=== PATIENT | male | born 1965 | race Caucasian/White ===

== ENCOUNTER 2017-02-23 04:35 | Emergency (ER) | payer BC ==
[2017-02-23] MEDS ORDERED: Ondansetron 4 MG/2 ML SDV IV ONE (04:52)
[2017-02-23] MEDS ORDERED: HYDROmorphone 1 MG/ML Syringe IVPUSH ONE (04:53)
--- NOTE | 2017-02-23 05:19 | EDM.PDOC ---
ED HPI GI/ABDOMINAL - General Chief Complaint: Abdominal Pain Stated Complaint: GALLBLADDER [phone] Time Seen by Provider: 02/23/17 05:16 Source of Information: Reports: Patient History Limitations: Reports: No limitations - History of Present Illness INITIAL COMMENTS - FREE TEXT/NARRATIVE: states has GB surgery Saturday. tonight ate pizza and pain started. - Related Data Allergies/ADRs: Allergies Allergy/AdvReac Type Severity Reaction Status Date / Time No Known Allergies Allergy Verified 02/23/17 04:52 Home Meds: Home Meds Pantoprazole [ProTONIX] 02/23/17 [History] Sertraline HCl 02/23/17 [History] Venlafaxine HCl [Venlafaxine HCl ER] 02/23/17 [History] Past Medical History Psychiatric History: Reports: Anxiety, Depression - Infectious Disease History Infectious Disease History: Reports: Chicken pox Social & Family History - Family History Family Medical History: Noncontributory - Tobacco Use Smoking Status *Q: Never Smoker - Caffeine Use Caffeine Use: Reports: Coffee - Recreational Drug Use Recreational Drug Use: No ED ROS GENERAL - Review of Systems Review Of Systems: ROS reveals no pertinent complaints other than HPI. ED EXAM, GI/ABD - Physical Exam Exam: See Below Exam Limited By: No limitations General Appearance: alert, WD/WN, mild distress, other (rolling on floor) Ears: hearing grossly normal Throat/Mouth: Normal voice, No airway compromise Head: atraumatic Neck: non-tender, full range of motion Respiratory/Chest: no respiratory distress Cardiovascular: regular rate, rhythm GI/Abdominal: tenderness, guarding, other (RUQ-epiG). No: rebound, rigidity Neurological: alert, oriented, normal cognition, normal gait, no motor/sensory deficits Psychiatric: tearful Skin Exam: Warm, Dry Lymphatic: no adenopathy Course - Vital Signs Last Recorded V/S: Last Vital Signs Temp 35.7 C 02/23/17 05:00 Pulse 90 02/23/17 06:01 Resp 16 02/23/17 06:01 BP 127/74 02/23/17 06:01 Pulse Ox 95 02/23/17 06:01 - Orders/Labs/Meds Labs: Laboratory Tests 02/23/17 02/23/17 Range/Units 05:22 05:22 WBC 8.1 (5.0-10.0) 10^3/uL RBC 4.42 L (4.6-6.2) 10^6/uL Hgb 13.0 L (14.0-18.0) g/dL Hct 37.9 L (40.0-54.0) % MCV 85.7 (80-100) fL MCH 29.4 (27.0-34.0) pg MCHC 34.3 (33.0-35.0) g/dL Plt Count 180 (150-450) 10^3/uL Neut % (Auto) 81.5 H (42.2-75.2) % Lymph % (Auto) 12.5 L (20.5-50.1) % [place] % (Auto) 4.7 (2-8) % Eos % (Auto) 1.1 (1.0-3.0) % Baso % (Auto) 0.2 (0.0-1.0) % Sodium 140 (135-145) mmol/L Potassium 3.9 (3.6-5.0) mmol/L Chloride 105 (101-111) mmol/L Carbon Dioxide 28.0 (21.0-31.0) mmol/L Anion Gap 10.9 BUN 15 (7-18) mg/dL Creatinine 1.2 (0.6-1.3) mg/dL Est Cr Clr Drug Dosing 75.20 mL/min Estimated GFR (MDRD) > 60 BUN/Creatinine Ratio 12.50 Glucose 106 H (74-105) mg/dL Calcium 8.5 (8.4-10.2) mg/dl Total Bilirubin 0.3 (0.2-1.0) mg/dL AST 20 (10-42) IU/L ALT 28 (10-60) IU/L Alkaline Phosphatase 71 (42-121) IU/L Total Protein 6.9 (6.7-8.2) g/dl Albumin 3.9 (3.2-5.5) g/dl Globulin 3.0 Albumin/Globulin Ratio 1.30 Amylase 40 (28-100) U/L Lipase 28 (22-51) U/L Meds: Medications Discontinued Medications Generic Name Dose Route Start Last Admin Trade Name Freq PRN Reason Stop Dose Admin Hydromorphone HCl 2 mg 02/23/17 04:53 02/23/17 05:00 Dilaudid IVPUSH 02/23/17 04:54 2 mg ONETIME ONE Administration Ondansetron HCl 4 mg 02/23/17 04:52 02/23/17 04:57 Zofran IV 02/23/17 04:53 4 mg ONETIME ONE Administration - Re-Assessments/Exams Free Text/Narrative Re-Assessment/Exam: 02/23/17 05:19 s/p IV Rx= much better no more rolling about. 02/23/17 06:13 results discussed with Pt & spouse. Pt has no c/o Departure - Departure Time of Disposition: 06:14 Disposition: Home, Self-Care 01 Condition: good Clinical Impression: Cholecystitis Instructions: Abdominal Pain, Adult, [id number] Forms: ED Department Discharge Additional Instructions: 1) avoid solid foods next 3 to 4 days 2) have popsicle, jello, baby foods 3) follow up with family doctor or recheck as needed
[2017-02-23 05:50] LABS: CHLORIDE,CL 105 mmol/L (101-111); SODIUM,NA 140 mmol/L (135-145)
[2017-02-23 06:01] VITALS: BP 127/74
== END 2017-02-23 06:19 | disposition home or self-care (01) ==
LOC: DL.ED 04:35
DX: K81.9 Cholecystitis, unspecified (principal); F41.9 Anxiety disorder, unspecified; F32.9 Major depressive disorder, single episode, unspecified; Z79.899 Other long term (current) drug therapy
CPT/HCPCS: 36415; 80053; 82150; 83690; 85025; 96374; 96375; 99284; J1170; J2405

== ENCOUNTER 2020-07-05 10:42 | Day surgery (SDC) | payer OTHER, BC ==
[2020-07-05] MEDS ORDERED: Lidocaine 1% with EPINEPHrine 1:100,000 20 ML MDV INJECT ONE (10:43)
[2020-07-05 10:51] VITALS: BP 153/91; PULSE 77
[2020-07-05] MEDS ORDERED: Lidocaine 1% with EPINEPHrine 1:100,000 20 ML MDV ONE (11:00)
[2020-07-05] MEDS ORDERED: Lidocaine 1% with EPINEPHrine 1:100,000 30 ML MDV INJECT ONE ×2 (11:05→11:17)
--- NOTE | 2020-07-05 15:26 | OR ---
DATE: 07/05/2020 INTRODUCTION: This is a 54-year-old male who presents to the Surgery Clinic with 2 lesions, one is a chronic lesion in the mid back that is compatible with previously infected sebaceous cyst and he has a skin tag mole on the anterior body wall. On the back, this measures about 0.5 cm in diameter as well as the one on the anterior body wall is also 0.5 cm in diameter. The one on the back has been infected several different times and drains. It only moderately bothers him. DESCRIPTION OF PROCEDURE: In the General Surgery Clinic, 1% Xylocaine was used to infiltrate an area around this 5 mm lesion on the back. An elliptical incision was made 1 cm long and 7 mm wide. This elliptical incision was carried full-thickness down through the skin of the back to the subcutaneous tissue. Therefore, the margin around the cyst lesion was 2 mm. The dermal layer was closed with 2-0 Vicryl and skin was closed with 4-0 Monocryl. The patient was then placed on his back, and a punch biopsy was used to punch through this 5 mm in diameter skin lesion. This did not have any margins as it is benign and was simply excised at the margin of the mole. The skin was closed with an interrupted Monocryl suture and Steri-Strips. [facility] /[id number]
== END 2020-07-05 11:30 | disposition home or self-care (01) ==
LOC: DL.SDS 10:42 → DL.GSCL 10:42 → EDSTATUS 11:00 → DL.GSCL 11:30
PROVIDERS: ATTEND Surgery
DX: D23.5 Other benign neoplasm of skin of trunk (principal); D36.15 Benign neoplasm of peripheral nerves and autonomic nervous system of abdomen; E78.5 Hyperlipidemia, unspecified; Z79.899 Other long term (current) drug therapy; Z88.5 Allergy status to narcotic agent; Z88.8 Allergy status to other drugs, medicaments and biological substances
CPT/HCPCS: 11104; 11401; 12031; 88305

== ENCOUNTER 2021-06-10 01:24 | Emergency (ER) | payer OTHER, BC ==
--- NOTE | 2021-06-10 01:50 | EDM.PDOC ---
ED HPI GENERAL MEDICAL PROBLEM - General Chief Complaint: ENT Problem Stated Complaint: TOOTHPAIN ON RIGHTSIDE LOWER Time Seen by Provider: 06/10/21 01:50 Source of Information: Reports: Patient, RN, RN Notes Reviewed History Limitations: Reports: No Limitations - History of Present Illness INITIAL COMMENTS - FREE TEXT/NARRATIVE: Franklin is a 55 y/o male who presents to the ED via personal vehicle with complaints of right lower toothache. The patient reports his symptoms began earlier this evening and have progressively worsened over that time. The patient reports he has undergone significant dental work in the past three weeks, including root canal and dental infection due to lost fillings. He has taken doses of ibuprofen and acetaminophen, per his dentist's advice, which he feels has not provided alleviation of his pain. Right Lower Tooth/Teeth Pain Score (Numeric/FACES): 7 - Related Data Allergies Allergy/AdvReac Type Severity Reaction Status Date / Time No Known Allergies Allergy Verified 06/10/21 01:44 Home Meds: Home Meds Pantoprazole [ProTONIX] 40 mg PO DAILY 02/23/17 [History] Sertraline HCl 100 mg PO DAILY 02/23/17 [History] Venlafaxine HCl [Venlafaxine HCl ER] 150 mg PO DAILY 02/23/17 [History] Losartan Potassium [Cozaar] 50 mg PO DAILY 06/10/21 [History] Past Medical History Gastrointestinal History: Reports: Cholelithiasis Psychiatric History: Reports: Anxiety, Depression - Infectious Disease History Infectious Disease History: Reports: Chicken Pox - Past Surgical History GI Surgical History: Reports: Cholecystectomy Social & Family History - Family History Family Medical History: No Pertinent Family History - Tobacco Use Tobacco Use Status *Q: Current Every Day Tobacco User Years of Tobacco use: 30 Packs/Tins Daily: 0.5 - Caffeine Use Caffeine Use: Reports: Coffee, Soda - Recreational Drug Use Recreational Drug Use: No ED ROS ENT - Review of Systems Review Of Systems: Comprehensive ROS is negative, except as noted in HPI. ED EXAM, ENT - Physical Exam Exam: See Below Exam Limited By: No Limitations General Appearance: Alert, Mild Distress (Dental pain) Eye Exam: Bilateral Eye: EOMI, Normal Inspection, PERRL (3mm) Ears: Normal External Exam, Normal Canal, Hearing Grossly Normal, Normal TMs Nose: Normal Inspection, Normal Mucousa, No Blood Mouth/Throat: Normal Gums, Normal Lips, Normal Oropharynx, Dental Pain, Dental Tenderness (To right lower, tooth 28), Other (Poor dentition). No: Bleeding, Pharyngeal Erythema, Tonsillar Erythema, Tonsillar Exudates, Tonsillar Swelling Head: Atraumatic, Normocephalic Neck: Normal Inspection, Supple, Non-Tender, Full Range of Motion. No: Lymphadenopathy (L), Lymphadenopathy (R) Respiratory/Chest: No Respiratory Distress, Lungs Clear, Normal Breath Sounds, No Accessory Muscle Use, Chest Non-Tender Cardiovascular: Normal Peripheral Pulses, Regular Rate, Rhythm, No Edema, No Gallop, No JVD, No Murmur, No Rub GI/Abdominal: Normal Bowel Sounds, Soft, Non-Tender, No Distention, No Abnormal Bruit, No Mass, Pelvis Stable (Male) Exam: Deferred Rectal (Males) Exam: Deferred Back: Normal Inspection, Full Range of Motion Extremities: Normal Inspection, Normal Range of Motion, Non-Tender, No Pedal Edema, Normal Capillary Refill Neurological: Alert, Oriented, CN II-XII Intact, Normal Cognition, Normal Gait, No Motor/Sensory Deficits Psychiatric: Normal Affect, Anxious Skin: Warm, Dry, Intact, Normal Color, No Rash. No: Cyanosis, Ecchymosis, Erythema, Jaundice, Mottled, Pallor, Petechiae Course - Vital Signs Last Recorded V/S: Last Vital Signs Temp 96.9 F 06/10/21 01:51 Pulse 82 06/10/21 01:51 Resp 18 06/10/21 01:51 BP 123/86 06/10/21 01:51 Pulse Ox 96 06/10/21 01:51 - Orders/Labs/Meds Meds: Medications Discontinued Medications Generic Name Dose Route Start Last Admin Trade Name Miguelq PRN Reason Stop Dose Admin Acetaminophen 1,000 mg 06/10/21 02:05 06/10/21 02:18 Acetaminophen 500 Mg Tab PO 06/10/21 02:06 1,000 mg ONETIME ONE Administration Amoxicillin 1,000 mg 06/10/21 02:04 06/10/21 02:18 Amoxicillin 500 Mg Cap PO 06/10/21 02:05 1,000 mg ONETIME ONE Administration Ketorolac Tromethamine 60 mg 06/10/21 02:05 06/10/21 02:17 Ketorolac 30 Mg/Ml Sdv IM 06/10/21 02:06 60 mg ONETIME ONE Administration - Re-Assessments/Exams Free Text/Narrative Re-Assessment/Exam: 06/10/21 Ketorolac 60mg IM administered for tooth pain. Findings of examination reviewed with patient. Will treat dental infection with amoxicillin. Discussed supportive cares for dental pain. Patient instructed to follow up with primary dental home. Red flag signs and symptoms which would warrant reevaluation reviewed. Patient verbalized understanding and agreement with the plan of care. Departure - Departure Time of Disposition: 02:10 Disposition: Home, Self-Care 01 Condition: Good Clinical Impression: Tooth infection, Dental caries, Pain, dental - Discharge Information *PRESCRIPTION DRUG MONITORING PROGRAM REVIEWED*: Not Applicable *COPY OF PRESCRIPTION DRUG MONITORING REPORT IN PATIENT AMITA: Not Applicable Instructions: Acute Pain, Adult Referrals: PCP,None [Primary Care Provider] - Forms: ED Department Discharge Additional Instructions: Rx: amoxicillin 1.) Follow up with your primary care dentist on Saturday morning. 2.) Take all of your antibiotic until gone, even as symptoms improve. 3.) Do not take ibuprofen or other NSAIDs for at least 12 hours after receiving Toradol injection. 4.) You may take acetaminophen (Tylenol) 1000 mg every six hours, as pain persists. You may also take ibuprofen (Motrin) 400-600mg every six hours, as pain persists. You may stagger these medications so you are receiving a dose every three hours.
[2021-06-10 01:52] VITALS: BP 123/86; PULSE 82
[2021-06-10] MEDS ORDERED: Amoxicillin 500 MG Cap PO ONE (02:04)
[2021-06-10] MEDS ORDERED: Acetaminophen 500 MG Tab PO ONE (02:05)
[2021-06-10] MEDS ORDERED: Ketorolac 30 MG/ML SDV IM ONE (02:05)
== END 2021-06-10 02:23 | disposition home or self-care (01) ==
LOC: DL.ED 01:24
DX: K04.7 Periapical abscess without sinus (principal); K02.9 Dental caries, unspecified; Z72.0 Tobacco use
CPT/HCPCS: 96372; 99282; 99283; A9270-GY; J1885

== ENCOUNTER 2023-12-10 15:28 | Emergency (ER) | payer OTHER, BC ==
[2023-12-10] MEDS ORDERED: Sodium Chloride 0.9% 10 ML Syringe FLUSH PRN (16:07)
[2023-12-10] MEDS ORDERED: Aspirin 81 MG Tab.Chew PO ONE (16:20)
[2023-12-10 16:29] LABS: BASOPHILS PERCENT AUTO 0.6 % (0.0-1.0); EOSINOPHILS PERCENT AUTO 6.8 % (1.0-3.0); HEMATOCRIT 41.9 % (40.0-54.0); HEMOGLOBIN 14.4 g/dL (14.0-18.0); LYMPHOCYTES PERCENT AUTO 32.8 % (20.5-50.1); MEAN CORPUSCULAR HEMOGLOBIN 29.6 pg (27.0-34.0); MEAN CORPUSCULAR HGB CONC 34.4 g/dL (33.0-35.0); MONOCYTES PERCENT AUTO 8.6 % (2-8); NEUTROPHILS PERCENT AUTO 51.2 % (42.2-75.2); PLATELET COUNT,PLT 274 10^3/uL (150-450); RED BLOOD CELL COUNT 4.87 10^6/uL (4.6-6.2); WHITE BLOOD CELL COUNT,WBC 7.1 10^3/uL (5.0-10.0)
[2023-12-10 16:51] LABS: ALANINE AMINOTRANSFERASE,ALT 28 U/L (16-63); ALKALINE PHOSPHATASE 100 U/L (46-116); ANION GAP 12.1 mEq/L (7-13); ASPARTATE AMNIOTRANSFERASE,AST 17 U/L (15-37); BILIRUBIN TOTAL 0.3 mg/dL (0.2-1.0); BLOOD UREA NITROGEN,BUN 13 mg/dL (7-18); BUN/CREATININE RATIO 9.6 (No establ ref range); CARBON DIOXIDE,CO2 29 mmol/L (21-32); CHLORIDE,CL 103 mmol/L (98-107); CREATININE 1.35 mg/dL (0.70-1.30); EST CRCL DRUG DOSING (CG) 62.34 mL/min; GLUCOSE RANDOM 103 mg/dL (70-99); POTASSIUM,K 4.1 mmol/L (3.5-5.1); SODIUM,NA 140 mmol/L (136-145)
[2023-12-10 16:59] LABS: ESTIMATED GFR 61 mL/min (>=60)
[2023-12-10 17:01] VITALS: BP 128/93; PULSE 86
[2023-12-10 17:04] LABS: CORONAVIRUS COVID-19 NAA NEGATIVE (NEGATIVE); INFLUENZA A NAA NEGATIVE (NEGATIVE); INFLUENZA B NAA NEGATIVE (NEGATIVE); RESPIRATORY SYNCYTIAL VIR NAA NEGATIVE (NEGATIVE)
== END 2023-12-10 18:03 | disposition home or self-care (01) ==
LOC: DL.ED 15:28
DX: R07.89 Other chest pain (principal); I10 Essential (primary) hypertension; E78.00 Pure hypercholesterolemia, unspecified; Z79.899 Other long term (current) drug therapy; Z20.822 Contact with and (suspected) exposure to COVID-19
CPT/HCPCS: 0241U; 36415; 71045; 80053; 84484; 85025; 93005; 93010; 99284; 99285; A9270